=== PATIENT | male | born 1935 | race Two or more races ===

== ENCOUNTER 2017-04-26 07:03 | Inpatient (IN) | payer OTHER ==
[~2017-04-26] VITALS: Ht 175.3 cm; Wt 87.8 kg
[~2017-04-26 07:03] MED LIST: ASPI81TA27 PO; ATOR20TA50 PO; FENO160T8 PO; GABA300C10 PO; OMEP20CA74 PO
[2017-04-26] MEDS ORDERED: TRANEXAMIC ACID 1,000 mg/10ml INJ VIAL ONE (07:23)
[2017-04-26] MEDS ORDERED: BUPIVACAINE W/ EPINEPH 0.25% INJ 50ML MDV ONE (07:23)
[2017-04-26] MEDS ORDERED: KETOROLAC TROMETH 30 MG/ML 1ML VIAL ONE (07:25)
[2017-04-26] MEDS ORDERED: VANCOMYCIN HCL 1000 MG VL ONE (07:25)
[2017-04-26] MEDS ORDERED: PREGABALIN CAPSULE 75 MG CAP PO ONE (07:30)
[2017-04-26] MEDS ORDERED: CELECOXIB 100 MG CAP PO ONE (07:30)
[2017-04-26] MEDS ORDERED: ACETAMINOPHEN IV 1000 MG/100ML (10MG/ML) IV ONE (07:30)
[2017-04-26] MEDS ORDERED: ceFAZolin 1GM 2 GM in D5W 5% 100 ML IV ONE (07:30)
[2017-04-26] MEDS ORDERED: ceFAZolin 1GM/50ML 100 ML IV ONE (07:47)
[2017-04-26] MEDS ORDERED: PROPOFOL 10 MG/ML 20 ML IV ONE (07:57)
[2017-04-26] MEDS ORDERED: MIDAZOLAM HCL 1MG/1ML-2 ML VIAL ONE (07:57)
[2017-04-26] MEDS ORDERED: fentaNYL CITRATE 5 ML ONE (07:57)
[2017-04-26] MEDS ORDERED: ROCURONIUM 10MG/ML 10ML VIAL IV ONE (07:57)
[2017-04-26] MEDS ORDERED: MORPHINE SULF(PF) 0.5MG/ML 10ML VIAL ONE (08:00)
[2017-04-26] MEDS ORDERED: ROPIVACAINE 0.5% (5MG/ML) 20ML AMPULE IJ ONE (08:02)
[2017-04-26] MEDS ORDERED: LIDOCAINE W/ EPINEPHRINE 2% INJ 20ML VIAL ONE (08:02)
[2017-04-26] MEDS ORDERED: GLYCOPYRROLATE 0.2 MG/ML 1ML VIAL IV ONE (08:19)
[2017-04-26] MEDS ORDERED: NEOSTIGMINE 1 MG/ML INJ (10mg/10ML VIAL) IV ONE (08:19)
[2017-04-26] MEDS ORDERED: ePHEDrine SULFATE 50 MG/ML AMP IV PRN (12:15)
[2017-04-26] MEDS ORDERED: hydrALAZINE HCL 20 MG/ML VL IV PRN (12:15)
[2017-04-26] MEDS ORDERED: MORPHINE SULFATE 4 MG/ML SYR/VIAL IV PRN (12:15)
[2017-04-26] MEDS ORDERED: ONDANSETRON HCL 4 MG/2 ML VIAL IV ONE (12:15)
[2017-04-26] MEDS ORDERED: traMADol HCL 50 MG TAB PO PRN (12:30)
[2017-04-26] MEDS: LACTATED RINGER'S 1,000 ML IV SCH ×2 (12:30→22:01)
[2017-04-26] MEDS ORDERED: HYDROmorphone HCL 2 MG/ML VL IV PRN (12:30)
[2017-04-26] MEDS ORDERED: ACETAMINOPHEN 500 MG TAB PO PRN (12:30)
[2017-04-26] MEDS ORDERED: ASPirin-EC 325mg tab PO ONE (12:30)
[2017-04-26 13:23] VITALS: BP 111/59
[2017-04-26] MEDS: ceFAZolin 1GM/50ML 50 ML IV SCH ×2 (14:05→21:33)
[2017-04-26] MEDS: OXYCODONE HCL 5MG TAB PO PRN (14:06)
[2017-04-26 14:31] VITALS: BP 111/59
[2017-04-26 16:51] VITALS: BP 77/48
[2017-04-26 16:58] VITALS: BP 108/60
[2017-04-26] MEDS: KETOROLAC TROMETH 30 MG/ML 1ML VIAL IV PRN (17:04)
[2017-04-26 20:00] VITALS: BP 110/61
[2017-04-26] MEDS: ATORVASTATIN 20 MG TAB PO SCH (21:34)
[2017-04-26] MEDS: oxyCODONE ER 10 MG TAB PO SCH (21:34)
[2017-04-26] MEDS: GABAPENTIN 100 MG CAP PO SCH (21:34)
[2017-04-26] MEDS: DOCUSATE SOD 100 MG CAP PO SCH (21:34)
[2017-04-26 21:50] VITALS: BP 110/61
[2017-04-26] MEDS ORDERED: PANTOPRAZOLE 40 MG TAB PO ONE (23:00)
[2017-04-26] MEDS: traMADol HCL 50 MG TAB PO PRN (23:03)
[2017-04-27] MEDS: OXYCODONE HCL 5MG TAB PO PRN ×2 (02:30→18:48)
[2017-04-27 05:13] VITALS: BP 112/57
[2017-04-27] MEDS: ceFAZolin 1GM/50ML 50 ML IV SCH (05:44)
[2017-04-27] MEDS: traMADol HCL 50 MG TAB PO PRN (05:51)
[2017-04-27] MEDS ORDERED: ONDANSETRON HCL 4 MG/2 ML VIAL IV PRN (06:30)
[2017-04-27 07:00] VITALS: BP 105/58
[2017-04-27 07:09] LABS: BUN/Creatinine Ratio 15.3; Calcium 8.3 mg/dL (8.5-10.1); Potassium 4.1 mmol/L (3.5-5.1)
[2017-04-27 07:33] LABS: Basophils # (auto) 0 uL; Basophils % (auto) 0.1 % (0.0-2.0); Eosinophils # (auto) 0 uL; Eosinophils % (auto) 0.1 % (0.0-7.0); Hematocrit 36.1 % (41.0-53.0); Hemoglobin 12.3 g/dL (13.5-17.5); Lymphocytes # (auto) 0.5 uL; Lymphocytes % (auto) 6.3 % (10.0-50.0); Mean Corpuscular Hemoglobin 33.2 pg (28.0-32.0); Mean Corpuscular Hgb Conc. 34.2 g/dL (32.0-36.0); Mean Corpuscular Volume 97.1 fL (80.0-100.0); Monocytes # (auto) 0.2 uL; Monocytes % (auto) 2.1 % (0.0-12.0); Neutrophils # (auto) 6.7 uL; Neutrophils % (auto) 91.4 % (37.0-80.0); Platelet Count (auto) 206 10^3/uL (140-450); Red Blood Cells 3.72 10^6/uL (4.5-5.90); White Blood Cell 7.3 10^3/uL (4.4-10.8)
[2017-04-27] MEDS: LACTATED RINGER'S 1,000 ML IV SCH ×2 (08:04→10:41)
[2017-04-27] MEDS: GABAPENTIN 100 MG CAP PO SCH ×2 (08:06→22:11)
[2017-04-27] MEDS: DOCUSATE SOD 100 MG CAP PO SCH ×2 (08:06→22:10)
[2017-04-27] MEDS: oxyCODONE ER 10 MG TAB PO SCH ×2 (08:07→22:10)
[2017-04-27] MEDS: PANTOPRAZOLE 40 MG TAB PO SCH (08:07)
[2017-04-27] MEDS: KETOROLAC TROMETH 30 MG/ML 1ML VIAL IV PRN (09:40)
[2017-04-27 11:51] VITALS: BP 104/57
[2017-04-27] MEDS ORDERED: TAMSULOSIN HYDROCHLORIDE 0.4 MG CAP PO ONE (12:45)
[2017-04-27 16:22] VITALS: BP 118/67
[2017-04-27] MEDS ORDERED: OXY5T PO (17:18)
[2017-04-27] MEDS ORDERED: GAB100C PO (17:18)
[2017-04-27] MEDS ORDERED: TAM04C PO (17:18)
[2017-04-27] MEDS: TAMSULOSIN HYDROCHLORIDE 0.4 MG CAP PO SCH (17:21)
[2017-04-27 22:00] VITALS: BP 113/70
[2017-04-27] MEDS: ATORVASTATIN 20 MG TAB PO SCH (22:11)
[2017-04-28] MEDS: OXYCODONE HCL 5MG TAB PO PRN ×3 (00:25→13:45)
[2017-04-28 05:00] VITALS: BP 119/66
[2017-04-28 08:00] VITALS: BP 107/69
[2017-04-28] MEDS: traMADol HCL 50 MG TAB PO PRN (08:55)
[2017-04-28] MEDS: PANTOPRAZOLE 40 MG TAB PO SCH (10:17)
[2017-04-28] MEDS: oxyCODONE ER 10 MG TAB PO SCH (10:17)
[2017-04-28] MEDS: DOCUSATE SOD 100 MG CAP PO SCH (10:17)
[2017-04-28] MEDS: GABAPENTIN 100 MG CAP PO SCH (10:17)
[2017-04-28 12:26] VITALS: BP 114/64
[2017-04-28 16:22] VITALS: BP 106/59
[2017-04-28] MEDS: TAMSULOSIN HYDROCHLORIDE 0.4 MG CAP PO SCH (17:33)
[2017-04-28 17:58] VITALS: BP 114/64
== END 2017-04-28 19:10 | disposition home health service (06) | DRG 483 ==
LOC: SUR 07:03 → CENTRAL 07:04 → WEST WING 04-27 19:53
PROVIDERS: ADMIT Orthopaedic Surgery Adult Reconstructive Orthopaedic Surgery; ATTEND Orthopaedic Surgery Adult Reconstructive Orthopaedic Surgery
PROC: 0LS30ZZ Reposition Right Upper Arm Tendon, Open Approach (ICD-10-PCS; 2017-04-26)
PROC: 0RRJ00Z Replacement of Right Shoulder Joint with Reverse Ball and Socket Synthetic Substitute, Open Approach (ICD-10-PCS; principal; 2017-04-26 08:19)
DX: M75.101 Unspecified rotator cuff tear or rupture of right shoulder, not specified as traumatic (principal); E78.00 Pure hypercholesterolemia, unspecified; K21.9 Gastro-esophageal reflux disease without esophagitis; Z96.611 Presence of right artificial shoulder joint; M19.011 Primary osteoarthritis, right shoulder; R33.9 Retention of urine, unspecified; Z82.49 Family history of ischemic heart disease and other diseases of the circulatory system; Z87.81 Personal history of (healed) traumatic fracture; Z79.899 Other long term (current) drug therapy
CPT/HCPCS: 36415; 73020; 80048; 82962; 85025; 86850; 86900; 86901; 97116; 97530; J0131; J0690; J1885; J2250; J2405; J2704; J7060